=== PATIENT | male | born 1990 | race Caucasian/White ===

== ENCOUNTER 2020-04-27 19:36 | Emergency (ER) | payer OTHER ==
[2020-04-27] MEDS ORDERED: Lidocaine 1% 20 ML MDV INJECT ONE (20:06)
[2020-04-27] MEDS ORDERED: Bacitracin Oint 1 GM U/D Packet TOP ONE (20:07)
[2020-04-27] MEDS ORDERED: Diphtheria,Pertussis(Acell),Tetanus Vaccine 0.5 ML Syringe IM ONE (20:08)
[2020-04-27] MEDS ORDERED: Lidocaine 1% 20 ML MDV ONE (20:25)
[2020-04-27] MEDS ORDERED: Bacitracin Oint 1 GM U/D Packet ONE (20:25)
[2020-04-27] MEDS ORDERED: Diphtheria,Pertussis(Acell),Tetanus Vaccine 0.5 ML Syringe ONE (20:26)
--- NOTE | 2020-04-27 21:00 | EDM.PDOC ---
ED HPI GENERAL MEDICAL PROBLEM - General Chief Complaint: Laceration Stated Complaint: CUT FINGER Time Seen by Provider: 04/27/20 20:05 Source of Information: Reports: Patient, RN, RN Notes Reviewed History Limitations: Reports: No Limitations - History of Present Illness INITIAL COMMENTS - FREE TEXT/NARRATIVE: Just prior to arrival patient cut his thumb with a straight edged knife. He was trying to make a hot dog stick to roast over the fire. He slipped with a knife and cut the back of his left thumb between the metacarpal joint and the first joint of the thumb. Patient has full range of motion flexion and extension he has good CMS distal to the wound. Onset: Today, Sudden Onset Date: 04/27/20 Onset Time: 20:00 Duration: Minutes: Location: Reports: Upper Extremity, Left (Left thumb) Quality: Reports: Sharp Severity: Moderate Improves with: Reports: Cold Therapy Worsens with: Reports: Movement Context: Reports: Activity Associated Symptoms: Reports: No Other Symptoms Treatments ACTUARY: Reports: Other (see below) (None) Left Finger-Thumb Pain Score (Numeric/FACES): 2 - Related Data Allergies Allergy/AdvReac Type Severity Reaction Status Date / Time No Known Allergies Allergy Verified 04/27/20 19:58 Home Meds: Home Meds NK [No Known Home Meds] 04/27/20 [History] Past Medical History Cardiovascular History: Reports: Hypertension - Infectious Disease History Infectious Disease History: Reports: Chicken Pox Social & Family History - Tobacco Use Smoking Status *Q: Never Smoker Second Hand Smoke Exposure: No - Caffeine Use Caffeine Use: Reports: Coffee, Soda - Alcohol Use Days Per Week of Alcohol Use: 0 - Recreational Drug Use Recreational Drug Use: No ED ROS GENERAL - Review of Systems Review Of Systems: See Below Constitutional: Reports: No Symptoms HEENT: Reports: No Symptoms Respiratory: Reports: No Symptoms Cardiovascular: Reports: No Symptoms Endocrine: Reports: No Symptoms GI/Abdominal: Reports: No Symptoms : Reports: No Symptoms Musculoskeletal: Reports: Hand Pain, Joint Pain (Left thumb) Skin: Reports: Lesions ( 2 cm incision left thumb) Neurological: Denies: Numbness, Tingling Psychiatric: Reports: No Symptoms Hematologic/Lymphatic: Reports: No Symptoms Immunologic: Reports: No Symptoms ED EXAM, SKIN/RASH Exam: See Below Exam Limited By: No Limitations General Appearance: Alert, WD/WN, No Apparent Distress Respiratory/Chest: No Respiratory Distress, Lungs Clear, Normal Breath Sounds Cardiovascular: Normal Peripheral Pulses, Regular Rate, Rhythm, No Edema Extremities: Normal Range of Motion, Normal Capillary Refill Neurological: Alert, Oriented, CN II-XII Intact, Normal Cognition, Normal Gait Psychiatric: Normal Affect Skin: Warm, Dry, Normal Color, Wound/Incision (2 cm left thumb) Location, Skin: Upper Extremity, Left (Left thumb) Characteristics: Linear Lymphatic: No Adenopathy ED SKIN PROCEDURES - Laceration/Wound Repair Left Lateral Digit - 1st (Thumb) Appearance: Superficial, Clean Distal NVT: Neuro & Vascular Intact, No Tendon Injury Anesthetic Type: Local Local Anesthesia - Lidocaine (Xylocaine): 1% Plain Local Anesthetic Volume: 2cc Skin Prep: Chlorhexidine (Hibiciens) Saline Irrigation (cc's): 50 Exploration/Debridement/Repair: Wound Explored, In a Bloodless Field, Explored to Base, No Foreign Material Found Closed with: Sutures Lac/Wound length In cm: 2 Suture Size: 5-0 # of Sutures: 4 Suture Type: Prolene Course - Vital Signs Last Recorded V/S: Last Vital Signs Temp 36.6 C 04/27/20 20:03 Pulse 71 04/27/20 20:03 Resp 16 04/27/20 20:03 BP 132/86 04/27/20 20:03 Pulse Ox - Orders/Labs/Meds Meds: Medications Discontinued Medications Generic Name Dose Route Start Last Admin Trade Name Freq PRN Reason Stop Dose Admin Bacitracin 1 dose 04/27/20 20:07 04/27/20 20:48 Bacitracin Oint 1 Gm TOP 04/27/20 20:08 1 dose ONETIME ONE Administration Diphtheria/Tetanus/Acell Pertussis 0.5 ml 04/27/20 20:08 04/27/20 20:48 Boostrix IM 04/27/20 20:09 0.5 ml .ONCE ONE Administration Lidocaine HCl 20 ml 04/27/20 20:06 04/27/20 20:48 Xylocaine 1% INJECT 04/27/20 20:07 20 ml ONETIME ONE Administration Departure - Departure Time of Disposition: 21:13 Disposition: Home, Self-Care 01 Condition: Good Clinical Impression: Laceration - Discharge Information *PRESCRIPTION DRUG MONITORING PROGRAM REVIEWED*: Not Applicable *COPY OF PRESCRIPTION DRUG MONITORING REPORT IN PATIENT MI: Not Applicable Instructions: VIS, DTaP (Diphtheria, Tetanus, Pertussis) Vaccine - CDC (11/02/2019), Wound Care, Adult, Sutured Wound Care Referrals: PCP,None [Primary Care Provider] - Forms: ED Department Discharge Additional Instructions: keep sutures covered for 24 hours. keep area clean and dry. report any signs and symptoms of infection Care Plan Goals: suture removal in 7-10 days Sepsis Event Note (ED) - Evaluation Sepsis Screening Result: No Definite Risk - Focused Exam Vital Signs: Vital Signs Temp Pulse Resp BP 04/27/20 20:03 36.6 C 71 16 132/86
== END 2020-04-27 21:13 | disposition home or self-care (01) ==
LOC: JP.ED 19:36
DX: S61.012A Laceration without foreign body of left thumb without damage to nail, initial encounter (principal); Z23 Encounter for immunization; W26.0XXA Contact with knife, initial encounter
CPT/HCPCS: 12001; 90471; 99282; J2001